=== PATIENT | male | born 1995 | race Caucasian/White ===

== ENCOUNTER 2020-04-19 22:33 | Emergency (ER) | payer BC ==
--- NOTE | 2020-04-19 22:47 | EDM.PDOC ---
ED HPI GENERAL MEDICAL PROBLEM - General Chief Complaint: Laceration Stated Complaint: LACERATION Time Seen by Provider: 04/19/20 22:46 Source of Information: Reports: Patient History Limitations: Reports: No Limitations - History of Present Illness INITIAL COMMENTS - FREE TEXT/NARRATIVE: This patient is a 24 year old male that presents to the ER. Patient reports he was unloading metal piping from truck when one fell and hit his left anterior lagunas. He reports he ducked his head so he did not get hit in the head. Patient denies other injury. Patient reports laceration at site. Onset: Today Onset Date: 04/19/20 Duration: Hour(s): (2) Location: Reports: Lower Extremity, Left Front/Back Body Image: 1 - laceration Quality: Reports: Ache, Burning Severity: Mild Improves with: Reports: None Worsens with: Reports: None Associated Symptoms: Reports: No Other Symptoms Left Lower Leg Pain Score (Numeric/FACES): 7 - Related Data Allergies Allergy/AdvReac Type Severity Reaction Status Date / Time No Known Allergies Allergy Verified 04/19/20 22:47 Home Meds: Home Meds . [No Known Home Meds] 04/19/20 [History] ED ROS GENERAL - Review of Systems Review Of Systems: See Below Constitutional: Reports: No Symptoms HEENT: Reports: No Symptoms Respiratory: Reports: No Symptoms Cardiovascular: Reports: No Symptoms Endocrine: Reports: No Symptoms GI/Abdominal: Reports: No Symptoms : Reports: No Symptoms Musculoskeletal: Reports: No Symptoms Skin: Reports: Wound (left anterior lagunas) Neurological: Reports: No Symptoms Psychiatric: Reports: No Symptoms Hematologic/Lymphatic: Reports: No Symptoms Immunologic: Reports: No Symptoms ED EXAM, SKIN/RASH Exam: See Below Exam Limited By: No Limitations General Appearance: Alert, WD/WN, No Apparent Distress Eye Exam: Bilateral Eye: Normal Inspection Head: Atraumatic, Normocephalic Neck: Normal Inspection Respiratory/Chest: No Respiratory Distress, Lungs Clear Cardiovascular: Normal Peripheral Pulses, Regular Rate, Rhythm Peripheral Pulses: 2+: Posterior Tibial (L), Posterior Tibial (R) Extremities: Normal Range of Motion, Non-Tender, No Pedal Edema, Normal Capillary Refill Neurological: Alert, Oriented Psychiatric: Normal Affect, Normal Mood Skin: Warm, Dry, Normal Color, No Rash, Wound/Incision (left anterior lagunas 5cmx1.5cm) Location, Skin: Lower Extremity, Left (anterior lagunas) ED SKIN PROCEDURES - Laceration/Wound Repair Left Lower Anterior Leg Appearance: Subcutaneous, Other (bone visualized. Intact upon visualization) Distal NVT: Neuro & Vascular Intact, No Tendon Injury Anesthetic Type: Local Local Anesthesia - Lidocaine (Xylocaine): 1% with EPI Local Anesthetic Volume: Other (15ml actual: 15 wasted leaked: Initial 8ml, not achieved, but after additional 7ml, excellent achieved) Skin Prep: Chlorhexidine (Hibiciens) Saline Irrigation (cc's): 500 Exploration/Debridement/Repair: Wound Explored, In a Bloodless Field, Explored to Base, No Foreign Material Found, Wound Margins Revised, Multiple Flaps Aligned Closed with: [place]/Wound length In cm: 5 (1.5cm wide) # of Sutures: 14 Tetanus Status Addressed: Yes Complications: No Course - Vital Signs Last Recorded V/S: Last Vital Signs Temp 98.3 F 04/19/20 22:37 Pulse 69 04/19/20 22:37 Resp 16 04/19/20 22:37 BP 151/72 H 04/19/20 22:37 Pulse Ox 100 04/19/20 22:37 - Orders/Labs/Meds Orders: Active Orders 24 hr Category Date Time Status Tibia Fibula Lt [CR] Stat Exams 04/19/20 22:46 Taken Meds: Medications Discontinued Medications Generic Name Dose Route Start Last Admin Trade Name Jeronimo PRN Reason Stop Dose Admin Cefazolin Sodium 1 gm 04/19/20 22:47 04/19/20 22:55 Ancef IM 04/19/20 22:48 1 gm ONETIME ONE Administration Lidocaine/Epinephrine 20 ml 04/19/20 22:55 04/19/20 23:25 Xylocaine 1% With Epinephrine 1:100,000 INJECT 04/19/20 22:56 20 ml ONETIME ONE Administration Lidocaine/Epinephrine Confirm 04/19/20 23:12 04/19/20 23:38 Xylocaine 1% With Epinephrine 1:100,000 Administered 04/19/20 23:13 Not Given Dose 20 ml .ROUTE .STK-MED ONE Neomycin/Polymyxin/Bacitracin 1 each 04/19/20 23:31 04/19/20 23:38 Triple Antibiotic Oint TOP 04/19/20 23:32 1 each ONETIME ONE Administration - Radiology Interpretation Free Text/Narrative:: Left tib/fib: no fracture, no FB. Soft tissue injury. Departure - Departure Time of Disposition: 23:44 Disposition: Home, Self-Care 01 Condition: Fair Clinical Impression: Laceration of skin - Discharge Information *PRESCRIPTION DRUG MONITORING PROGRAM REVIEWED*: Not Applicable *COPY OF PRESCRIPTION DRUG MONITORING REPORT IN PATIENT MAUREEN: Not Applicable Instructions: Laceration Care, Adult, [id number], Sutures, Fox, or Adhesive Wound Closure, [id number] Forms: ED Department Discharge Additional Instructions: Followup with your primary care provider in 7 days for staple removal and evaluation Return to the ER for worsening of condition or any emergent concerns such as fever, vomiting, drainage from wound, redness Wash the area twice a day gently with soap and water, rinse, pat dry. Keep clean and covered: May apply Neosporin Tylenol or Motrin for pain Ice to area to prevent swelling, pain, and bruising Elevate Rest Sepsis Event Note (ED) - Focused Exam Vital Signs: Vital Signs Temp Pulse Resp BP Pulse Ox 04/19/20 22:37 98.3 F 69 16 151/72 H 100 - My Orders Last 24 Hours: My Active Orders 04/19/20 22:46 Tibia Fibula Lt [CR] Stat - Assessment/Plan Last 24 Hours: My Active Orders 04/19/20 22:46 Tibia Fibula Lt [CR] Stat Plan: PLEASE SEE RN NOTE FOR PFSH
[2020-04-19] MEDS: ceFAZolin 1 GM Vial IM ONE (22:55)
[2020-04-19] MEDS: Lidocaine 1% with EPINEPHrine 1:100,000 20 ML MDV INJECT ONE (23:25)
[2020-04-19] MEDS: Bacitracin/Neomycin/Polymyxin B Oint 0.9 GM U/D Packet TOP ONE (23:38)
[2020-04-19] MEDS: Lidocaine 1% with EPINEPHrine 1:100,000 20 ML MDV ONE (23:38)
== END 2020-04-19 23:55 | disposition home or self-care (01) ==
LOC: CC.ED 22:33
DX: S81.812A Laceration without foreign body, left lower leg, initial encounter (principal); W20.8XXA Other cause of strike by thrown, projected or falling object, initial encounter
CPT/HCPCS: 12002; 73590-LT; 96372; 99283-25; J0690